=== PATIENT | female | born 1960 | race Hispanic/Latino ===

== ENCOUNTER 2021-11-04 09:12 | Day surgery (SDC) | payer OTHER, MEDICARE ==
[~2021-11-04] VITALS: Ht 152.4 cm; Wt 81.7 kg
[2022-11-02 09:37] LABS: BASOPHILS % (AUTO) 0.7 % (0.0-5.0); EOSINOPHILS % (AUTO) 2.2 % (0.0-8.0); HEMATOCRIT 37.5 % (36-48); MEAN CORPUSCULAR HEMOGLOBIN 23.3 pg (27.0-33.0); MEAN CORPUSCULAR HGB CONC 30.7 g/dL (32.0-36.0); MEAN CORPUSCULAR VOLUME 75.9 fL (79-99); MONOCYTES % (AUTO) 7.7 % (3.0-13.0); NEUTROPHILS % (AUTO) 60.1 % (40.0-77.0); PLATELET COUNT (AUTO) 398 K/uL (130-400); RED BLOOD CELL COUNT(AUTO) 4.94 MIL/uL (4.00-5.50); RED CELL DISTRIBUTION WIDTH 17.2 % (11.0-15.5); WHITE BLOOD COUNT (AUTO) 9.6 K/uL (4.8-10.8)
[2022-11-02 09:41] LABS: APPEARANCE,URINE CLEAR (CLEAR); BILIRUBIN,URINE NEGATIVE (NEGATIVE); COLOR,URINE LIGHT-YELLOW (YELLOW); GLUCOSE, URINE (UA) NEGATIVE (NEGATIVE); KETONES,URINE NEGATIVE (NEGATIVE); LEUKOCYTE ESTERASE ,URINE 500 Leu/uL (NEGATIVE); NITRATE,URINE NEGATIVE (NEGATIVE); OCCULT BLOOD,URINE NEGATIVE (NEGATIVE); PROTEIN,URINE NEGATIVE (NEGATIVE); UROBILINOGEN,URINE 0.2 mg/dL (0.2-1.0)
[2022-11-02 09:49] LABS: INR 0.93 (0.85-1.15); PROTHROMBIN TIME 9.9 SEC (9.6-11.6)
[2022-11-02 09:51] LABS: CREATININE 0.9 mg/dL (0.5-1.5); POTASSIUM 4.7 mmol/L (3.5-5.1)
[2022-11-02 10:15] LABS: B-TYPE NATRIURETIC PEPTIDE 22 pg/mL (0-100)
[2022-11-02 10:33] LABS: BACTERIA,URINE RARE /HPF (None Seen); MUCUS,URINE RARE LPF (None Seen); SQUAMOUS EPITHELIAL CELL,UR FEW /HPF (0-2)
[2022-11-03 12:10] VITALS: BP 135/72
[2022-11-03] MEDS ORDERED: METO-408 PO (16:21)
[2022-11-03] MEDS ORDERED: SERT-439 PO (16:21)
[2022-11-03] MEDS ORDERED: VALS40TA11 PO (16:21)
[2022-11-03] MEDS ORDERED: AEC81 PO (16:21)
[2022-11-03] MEDS ORDERED: OMEP40CA21 PO (16:21)
[2022-11-03] MEDS ORDERED: METF-446 PO (16:21)
[2022-11-03] MEDS ORDERED: PRIM50TA23 PO (16:21)
[2022-11-03] MEDS ORDERED: LORA10TA7 PO (16:21)
[2022-11-03] MEDS ORDERED: CLOP75TA32 PO (16:21)
[2022-11-03] MEDS ORDERED: NITR0.4T50 SL (16:22)
[2022-11-04] VITALS (10 sets, daily range): BP systolic 107–165; BP diastolic 60–81
[2022-11-04] MEDS ORDERED: 0.9%NACL 1000ML 1,000 ML IV ONE (10:39)
[2022-11-04] MEDS ORDERED: LIDOCAINE HCL 1% 20 ML VIAL ONE (12:16)
[2022-11-04] MEDS ORDERED: FENTANYL CITRATE PF 50 MCG/1 ML 2ML VIAL ONE (12:17)
[2022-11-04] MEDS ORDERED: IOHEXOL 350 MG/ML 100ML INFUS..BTL IV ONE (12:17)
[2022-11-04] MEDS ORDERED: MIDAZOLAM HCL 1 MG/ML 2ML VIAL ONE (12:17)
[2022-11-04] MEDS ORDERED: HEPARIN 10,000 UNIT/10ML (1,000 UNIT/ML) VIAL ONE (12:17)
[2022-11-04] MEDS ORDERED: BIVALIRUDIN 250 MG/VIAL IV ONE (12:17)
[2022-11-04] MEDS ORDERED: IOHEXOL-350 50ML VIAL IV ONE (12:17)
[2022-11-04] MEDS ORDERED: NITROGLYCERIN 50MG VIAL ONE (12:17)
[2022-11-04] MEDS ORDERED: NICARDIPINE 25MG INJ IV ONE (12:17)
[2022-11-04] MEDS ORDERED: 0.9% NACL 500ML IV.SOLN 500 ML IV SCH (14:00)
== END 2022-11-04 17:23 | disposition home or self-care (01) ==
LOC: DAH 09:12
PROVIDERS: ATTEND Internal Medicine Cardiovascular Disease
DX: I25.110 Atherosclerotic heart disease of native coronary artery with unstable angina pectoris (principal); R94.31 Abnormal electrocardiogram [ECG] [EKG]; I10 Essential (primary) hypertension; E78.5 Hyperlipidemia, unspecified; K21.9 Gastro-esophageal reflux disease without esophagitis; E11.9 Type 2 diabetes mellitus without complications; Z79.82 Long term (current) use of aspirin; Z79.84 Long term (current) use of oral hypoglycemic drugs; Z79.01 Long term (current) use of anticoagulants; Z79.899 Other long term (current) drug therapy; Z82.49 Family history of ischemic heart disease and other diseases of the circulatory system; Z90.710 Acquired absence of both cervix and uterus
CPT/HCPCS: 82948 ×2; 80048; 83880; 85025; 85610; 85730; 87088; 81001; 36415; 71045; 93005; 93458; C1769; C1894; J3010; J7030; J3490 ×2; J1644 ×2; J2250; Q9967 ×2; A4215; A4222; A4221; A4663; A4216; A4606; Q9965; A4223 ×3; 99156; 99157; J0583